=== PATIENT | male | born 1980 | race American Indian/Alaskan Native ===

== ENCOUNTER 2017-04-10 01:04 | Emergency (ER) | payer SELFPAY ==
[2017-04-10] MEDS ORDERED: NACL 0.9% 1000 ML 1,000 ML IV ONE ×2 (01:53→03:24)
[2017-04-10 02:33] LABS: Hematocrit 33.4 % (35.5-45.6); Hemoglobin 11.3 gm/dl (11.8-15.2); Mean Corpuscular HGB Conc 34 % (32-34); Mean Corpuscular Hemoglobin 27 pg (28-32); Mean Corpuscular Volume 80 fl (84-94); Platelet Count 300 K/mm3 (140-440); Red Blood Count 4.17 M/mm3 (3.65-5.03); Red Cell Distribution Width 14.9 % (13.2-15.2)
[2017-04-10 02:49] LABS: Alanine Aminotransferase 25 units/L (7-56); Albumin 3.5 g/dL (3.9-5); Albumin/Globulin Ratio 0.7 %; Alkaline Phosphatase 360 units/L (35-129); Anion Gap 19 mmol/L; Blood Urea Nitrogen 26 mg/dL (9-20); Carbon Dioxide 21 mmol/L (22-30); Chloride 98.9 mmol/L (98-107); Glucose 92 mg/dL (75-100); Lipase 22 units/L (13-60); Potassium 3.8 mmol/L (3.6-5.0); Sodium 135 mmol/L (137-145); Total Protein 8.5 g/dL (6.3-8.2)
[2017-04-10 02:53] LABS: Calcium > 13.0 mg/dL (8.4-10.2)
[2017-04-10 03:07] LABS: INR 1.02 (0.87-1.13)
[2017-04-10 03:08] LABS: Bacteria,Urine 1+ /HPF (Negative); Bilirubin,Urine NEG (Negative); Blood,Urine SM (Negative); Ketones,Urine NEG (Negative); Leukocyte Esterase,Urine LG (Negative); Mucus,Urine FEW /HPF; Nitrite,Urine NEG (Negative); Urobilinogen,Urine < 2.0 mg/dL (<2.0)
[2017-04-10 03:08] LABS: Partial Thromboplastin Time 38.4 Sec. (24.2-36.6)
[2017-04-10] MEDS ORDERED: LASIX IV ONE (04:13)
[2017-04-10] MEDS ORDERED: ZOFRAN IV ONE (04:14)
[2017-04-10] MEDS ORDERED: MORPHINE IV ONE (04:14)
--- NOTE | 2017-04-10 04:28 | Cat Scan Report ---
FINAL REPORT PROCEDURE: CT ABDOMEN PELVIS WO CON TECHNIQUE: Computerized axial tomography of the abdomen and pelvis was performed without intravenous contrast. This study is performed without intravascular contrast material and its sensitivity for abdominal and pelvic pathology, including neoplasms, inflammation, abscess, free fluid, thrombosis, arterial dissection and infarction, is reduced compared with a contrast enhanced study. HISTORY: abd pain LEFT SIDE COMPARISON: No prior studies are available for comparison. FINDINGS: Visualized lower thorax: No significant abnormality. Liver: Normal size and attenuation. Spleen: The spleen is enlarged. Gallbladder and biliary system: Normal. Pancreas: Normal. Adrenals: Normal. Kidneys: The right renal size is normal. Numerous calcifications identified in the corticomedullary region. No hydronephrosis. The right ureter is not well visualized on this study. Calcifications in the right kidney range from 2-8 millimeters. The left kidney is enlarged. There is mild hydronephrosis. Numerous calcifications in the corticomedullary region are noted. These measure from 2-12 millimeters. The left ureter is dilated down to a 9 millimeter stone in the distal left ureter.. GI tract: The stomach is normal. The small bowel has a normal caliber. No obstruction is seen. Significant fecal debris identified throughout the colon. The appendix is not visualized.. Lymph nodes and mesentery: Normal. Vasculature: Normal. Bladder: Normal. Reproductive organs: Normal. Peritoneum: No free fluid. Musculoskeletal structures: No significant abnormality. Other: None. IMPRESSION: There is left hydronephrosis and hydroureter down to a 9 millimeter stone in the distal left ureter. The left kidney is slightly enlarged. Bilateral renal calculi are noted as discussed. No evidence of intestinal obstruction. Moderate splenomegaly..
--- NOTE | 2017-04-10 04:44 | Emergency Department Report ---
HPI - General Chief Complaint: Abdominal Pain Time Seen by Provider: 04/10/17 03:30 - HPI HPI: Patient with history of chronic splenomegaly, hypercalcemia, kidney stones presents to ED with left flank pain for the past week worse today. Patient denies any vomiting but has had nausea. Patient states no alleviating or exacerbating factors. Patient has not tried any medication for his symptoms. Patient recently moved to the area and has not yet obtained a primary care physician. ED Past Medical Hx - Past Medical History Previous Medical History?: Yes Additional medical history: SPLEEN - Surgical History Past Surgical History?: No - Social History Smoking Status: Current Every Day Smoker Substance Use Type: Alcohol, Marijuana - Medications Home Medications: Home Medications Medication Instructions Recorded Confirmed Last Taken Type Ciprofloxacin HCl [Ciprofloxacin 500 mg PO Q12H #14 tab 04/10/17 Unknown Rx TAB] HYDROcodone/APAP 10-325 [Aurora 1 each PO Q8HR PRN #20 tablet 04/10/17 Unknown Rx 10/325] Ondansetron [Zofran TAB] 4 mg PO Q8HR PRN #20 tablet 04/10/17 Unknown Rx ED Review of Systems ROS: Stated complaint: ABD PAIN/SWELLING Other details as noted in HPI Cardiovascular: as per HPI Endocrine: no symptoms reported Gastrointestinal: abdominal pain, nausea Physical Exam - Physical Exam Vital Signs: Vital Signs 04/10/17 04/10/17 04/10/17 01:47 03:26 03:46 Temperature 98.3 F Pulse Rate 89 76 Respiratory 22 20 18 Rate Blood Pressure 143/104 130/87 O2 Sat by Pulse 96 97 Oximetry Physical Exam: - General Limitations: No Limitations General appearance: alert, in no apparent distress - Head Head exam: Present: atraumatic, normocephalic - Eye Eye exam: Present: normal appearance - ENT ENT exam: Present: mucous membranes moist - Neck Neck exam: Present: normal inspection - Respiratory Respiratory exam: Present: normal lung sounds bilaterally. Absent: respiratory distress - Cardiovascular Cardiovascular Exam: Present: normal rhythm, tachycardia. Absent: systolic murmur, diastolic murmur, rubs, gallop - GI/Abdominal GI/Abdominal exam: Present: soft, normal bowel sounds, left flank tenderness - Extremities Exam Extremities exam: Present: normal inspection - Back Exam Back exam: Present: normal inspection - Neurological Exam Neurological exam: Present: alert, oriented X3, - Skin Skin exam: Present: warm, dry, intact, normal color. Absent: rash ED Course Vital Signs 04/10/17 04/10/17 04/10/17 01:47 03:26 03:46 Temperature 98.3 F Pulse Rate 89 76 Respiratory 22 20 18 Rate Blood Pressure 143/104 130/87 O2 Sat by Pulse 96 97 Oximetry - Reevaluation(s) Reevaluation #1: 04/10/17 06:15 Patient explained all labs, CT findings and advised to follow-up with urology in [employer] aide Dr. carter, who was consulted from the ED and agreed to see patient later today. The patient voiced understanding of plan of care. Will return to ED with worsening symptoms or inability to obtain follow-up. 04/10/17 06:15 ED Medical Decision Making - Lab Data Result diagrams: 04/10/17 02:05 04/10/17 02:05 Critical care attestation.: If time is entered above; I have spent that time in minutes in the direct care of this critically ill patient, excluding procedure time. ED Disposition Clinical Impression: Kidney stones, Hypercalcemia Disposition: - TO HOME OR SELFCARE Is pt being admited?: No Does the pt Need Aspirin: No Condition: Stable Prescriptions: Ciprofloxacin HCl [Ciprofloxacin TAB] 500 mg PO Q12H #14 tab HYDROcodone/APAP 10-325 [Aurora 10/325] 1 each PO Q8HR PRN #20 tablet PRN Reason: Pain Ondansetron [Zofran TAB] 4 mg PO Q8HR PRN #20 tablet PRN Reason: Nausea Referrals: JUAN M CARTER MD [Staff Physician] - 3-5 Days PRIMARY CARE, [Primary Care Provider] - 3-5 Days Forms: Accompanied Note
[2017-04-10 05:17] VITALS: BP 132/87
[2017-04-10] MEDS ORDERED: TORADOL IV ONE (05:24)
[2017-04-10] MEDS ORDERED: DILAUDID IV ONE (05:24)
[2017-04-10 07:27] LABS: Anisocytosis 1+; Basophils % (Manual) 0 % (0.0-1.8); Blastocytes % (Manual) 0 %; Diff Status Complete; Hypochromasia 1+
== END 2017-04-10 06:21 | disposition home or self-care (01) ==
LOC: ED 01:04
DX: N20.0 Calculus of kidney (principal); F17.210 Nicotine dependence, cigarettes, uncomplicated; F12.10 Cannabis abuse, uncomplicated
CPT/HCPCS: 36415; 74176; 80053; 81001; 83690; 85007; 85025; 85610; 85730; 86850; 86900; 86901; 93005; 93010; 96361; 96374; 96375; 99284; J1170; J1885; J1940; J2270; J2405; J2920; J7030